=== PATIENT | female | born 1980 | race Caucasian/White ===

== ENCOUNTER → 2022-02-22 | Outpatient (CLI) | payer BC ==
[~2022-02-22] MED LIST: ATARAX 25MG25 MG/TAB PO; CEFTIN 250250 MG/TAB PO; DIFLUCAN150 MG PO; NEURONTIN600 MG/TAB PO; NORCO 325 MG-51 TAB PO; NORCO 325 MG-7.1 TAB PO; PHENERGAN 25 TA25 MG PO; PHENERGAN25 MG RC; PYRIDIUM200 M1 PO; XANAX .25M0.25 MG/TA PO; ZANTAC 150MG T150 MG PO; ZYRTEC 10MG10 MG PO; [UNRECOGNIZED DRUG - OTHER]
== END ==
LOC: COL.RAD 08:54
DX: G43.709 Chronic migraine without aura, not intractable, without status migrainosus (principal); G62.9 Polyneuropathy, unspecified; M35.00 Sjogren syndrome, unspecified
CPT/HCPCS: A9575